=== PATIENT | male | born 1990 | race American Indian/Alaskan Native ===

== ENCOUNTER 2021-09-05 01:34 | Emergency (ER) | payer MEDICAID ==
--- NOTE | 2021-09-05 04:07 | Emergency Department Report ---
<KISHA CONDE - Last Filed: 09/05/21 06:44> ED General Adult HPI - General Chief complaint: Urogenital-Male Stated complaint: LT SIDE PAIN Time Seen by Provider: 09/05/21 02:43 Source: EMS Mode of arrival: Wheelchair Limitations: No Limitations - History of Present Illness Initial comments: 31-year-old male patient with history of bilateral lower extremity amputation presents to the emergency department with complaints of left hip pain starting today. No preceding fall, trauma, or injury. Patient uses a Lopez catheter at baseline. States his catheter is not working properly. His catheter was changed approximately 2 weeks ago. Usually, he keeps his catheter in place for 3 to 4 weeks at a time. Patient states the urine itself is not changed in appearance but the catheter seems to be leaking. Denies fever, abdominal pain, nausea, vomiting diarrhea, constipation. Denies all other complaints at this time. - Related Data Previous Rx's Medication Instructions Recorded Last Taken Type Naproxen 500 mg PO BID #20 tablet 09/05/21 Unknown Rx Sulfamethoxazole/Trimethoprim 1 each PO BID #20 tablet 09/05/21 Unknown Rx [Bactrim DS TAB] Allergies Allergy/AdvReac Type Severity Reaction Status Date / Time No Known Allergies Allergy Verified 09/05/21 01:45 ED Review of Systems Other: GENERAL: Negative for fever. CARDIOVASCULAR: Negative for chest pain. PULMONARY: Negative for shortness of breath. GASTROINTESTINAL: Negative for abdominal pain. MUSCULOSKELETAL: Positive for joint pain. NEUROLOGICAL: Negative for headache. INTEGUMENTARY: Negative for rash. ED Past Medical Hx - Past Medical History Hx Renal Disease: Yes Additional medical history: bilateral amputee - Medications Home Medications: Home Medications Medication Instructions Recorded Confirmed Last Taken Type Naproxen 500 mg PO BID #20 tablet 09/05/21 Unknown Rx Sulfamethoxazole/Trimethoprim 1 each PO BID #20 tablet 09/05/21 Unknown Rx [Bactrim DS TAB] ED Physical Exam - General Limitations: No Limitations - Other Other exam information: General: Awake, appropriately interactive, no acute distress. Neck: Supple. Full range of motion intact. Cardiovascular: Normal peripheral perfusion. Pulmonary: No respiratory distress. Patient is speaking normally without use of accessory muscles. Genitourinary: Lopez catheter in place however urine appears to be leaking around the catheter. No gross hematuria appreciated. Skin: No apparent rashes or lesions. Neurological: No facial asymmetry. Speech is clear. Follows commands. Patient is alert and oriented. Musculoskeletal: Left hip tenderness. Psych: Cooperative. Appropriate mood and affect. ED Medical Decision Making - Radiology Data [facility] [address] [place] [address] XRay Report Signed Patient: PAM GONZALEZ MR#: [id number] : 1990 Acct:[id number] Age/Sex: 31 / M ADM Date: 09/05/21 Loc: ED Attending Dr: Ordering Physician: ROSALBA DE SOUZA Date of Service: 09/05/21 Procedure(s): XR hip 2-3V LT Accession Number(s): [id number] cc: ROSALBA DE SOUZA Fluoro Time In Minutes: LEFT HIP 2 VIEW(S) INDICATION / CLINICAL INFORMATION: LEFT hip pain COMPARISON: None available. FINDINGS: BONES / JOINT(S): There is dislocation of the right femur, likely chronic given the degree of hip dysplasia. There is a dysmorphic appearance of the left femoral acetabular joint, likely sequela of long-standing hip dysplasia. No displaced fracture. SOFT TISSUES: Moderate stool retention throughout the colon. ADDITIONAL FINDINGS: None. Signer Name: Kailash Wild DO Signed: 09/05/2021 4:52 AM Workstation Name: [id number] Transcribed By: JAYESH Dictated By: KAILASH WILD DO Electronically Authenticated By: KAILASH WILD DO Signed Date/Time: 09/05/21451 DD/ 8 TD/TT: - Medical Decision Making Differential diagnosis including but not limited to: sprain, strain, fracture, contusion, dislocation, urinary tract infection, catheter obstruction On reevaluation, patient remains stable. X-rays show chronic changes without acute process. Lopez catheter changed without complications. Urinalysis pending. Patient's RN and radiology specialist both expressed concern regarding the patient's current hygiene status. He was found to have roaches crawling out of his pants by multiple staff members. Suspect he is not being appropriately cared for at his current residence. Patient given food and water. Case management consultation requested. Care of patient transferred to Kevin Harden NP at change of shift pending urinalysis results and case management consultation. ED Disposition Clinical Impression: Left hip pain Lopez catheter problem Qualifiers: Encounter type: initial encounter Qualified Code(s): T83.9XXA - Unspecified complication of genitourinary prosthetic device, implant and graft, initial encounter UTI (urinary tract infection) Qualifiers: Urinary tract infection type: acute cystitis Hematuria presence: with hematuria Qualified Code(s): N30.01 - Acute cystitis with hematuria Disposition: HOME / SELF CARE / HOMELESS Is pt being admited?: No Does the pt Need Aspirin: No Condition: Stable Instructions: Musculoskeletal Pain Additional Instructions: Take Tylenol every 4 hours as needed for pain. Take Naprosyn twice daily with food as needed for pain. Follow-up with primary care provider this week. Call today to schedule an appointment. See referral information below. Return to the emergency department immediately for new or worsening symptoms. Prescriptions: Sulfamethoxazole/Trimethoprim [Bactrim DS TAB] 1 each PO BID #20 tablet Naproxen 500 mg PO BID #20 tablet Referrals: NIYAH OG MD [Staff Physician] - 3-[address] [facility] [Provider Group] - 3-5 Days <KEVIN HARDEN - Last Filed: 09/05/21 11:07> ED Review of Systems ROS: Stated complaint: LT SIDE PAIN Other details as noted in HPI ED Course Vital Signs 09/05/21 09/05/21 09/05/21 01:46 05:25 05:27 Temperature 98.6 F 98.4 F Pulse Rate 79 73 Respiratory 18 16 16 Rate Blood Pressure 103/55 126/74 [Left] O2 Sat by Pulse 100 100 100 Oximetry 09/05/21 07:57 Temperature 98 F Pulse Rate 73 Respiratory 18 Rate Blood Pressure 120/68 [Left] O2 Sat by Pulse 99 Oximetry - Reevaluation(s) Reevaluation #1: 09/05/21 09:24 Patient was originally seen by ROSALBA Pulido and was signed out to me for a pending UA and case management. (PHILLIP CASEY) case management has been present and provided patient with references. UA does show that patient has a UTI, Rocephin has been ordered and patient be discharged with Bactrim. Patient is currently stable and vital signs are stable. Patient stated pain is under control. ED Medical Decision Making - Lab Data Lab Results 09/05/21 Range/Units Unknown Urine Color Yellow (Yellow) Urine Turbidity Cloudy (Clear) Urine pH 6.0 (5.0-7.0) Ur Specific [place] 1.017 (1.003-1.030) Urine Protein 100 mg/dl (Negative) mg/dL Urine Glucose (UA) Neg (Negative) mg/dL Urine Ketones Neg (Negative) mg/dL Urine Blood Lg (Negative) Urine Nitrite Neg (Negative) Urine Bilirubin Neg (Negative) Urine Urobilinogen < 2.0 (<2.0) mg/dL Ur Leukocyte Esterase Lg (Negative) Urine WBC (Auto) > 182.0 H (0.0-6.0) /HPF Urine RBC (Auto) 135.0 (0.0-6.0) /HPF U Epithel Cells (Auto) 1.0 (0-13.0) /HPF Urine Mucus Few /HPF Urine Yeast (Budding) 2+ /HPF - Medical Decision Making Patient was originally seen by ROSALBA Pulido and was signed out to me for a pending UA and case management. Case management has been present and provided patient with references. UA does show that patient has a UTI, Rocephin has been ordered and patient be discharged with Bactrim. Patient is currently stable and vital signs are stable. Patient stated pain is under control. Patient was instructed to follow-up with a primary care doctor in 3-5 days or if symptoms worsen and continue return to emergency room as soon as possible. At time of discharge, the patient does not seem toxic or ill in appearance. No acute signs of distress noted. Patient agrees to discharge treatment plan of care. No further questions noted by the patient. Critical care attestation.: If time is entered above; I have spent that time in minutes in the direct care of this critically ill patient, excluding procedure time.
--- NOTE | 2021-09-05 04:56 | XRay Report ---
LEFT HIP 2 VIEW(S) INDICATION / CLINICAL INFORMATION: LEFT hip pain COMPARISON: None available. FINDINGS: BONES / JOINT(S): There is dislocation of the right femur, likely chronic given the degree of hip dys plasia. There is a dysmorphic appearance of the left femoral acetabular joint, likely sequela of long -standing hip dysplasia. No displaced fracture. SOFT TISSUES: Moderate stool retention throughout the colon. ADDITIONAL FINDINGS: None. Signer Name: Kailash Delgado DO Signed: 09/05/2021 4:52 AM Workstation Name: [id number]
[2021-09-05 07:58] VITALS: BP 120/68
[2021-09-05 09:18] LABS: Bilirubin,Urine NEG (Negative); Blood,Urine LG (Negative); Color,Urine Yellow (Yellow); Mucus,Urine FEW /HPF; Urobilinogen,Urine < 2.0 mg/dL (<2.0)
[2021-09-05 09:22] LABS: WBC,Urine > 182.0 /HPF (0.0-6.0)
[2021-09-05] MEDS ORDERED: cefTRIAXone/NS 1 GM/50 ML 1 GM/50 ML BAG IV ONE (09:23)
[2021-09-05] MEDS ORDERED: LIDOCAINE-MPF (1%) 10 MG/1 ML VIAL 5 ML INFILTRATI ONE (09:39)
--- NOTE | 2021-09-05 10:36 | Event Note ---
Date: 09/05/21 The patient was evaluated in the emergency department for symptoms described in the history of present illness. He/she was evaluated in the context of the global COVID-19 pandemic, which necessitated consideration that the patient might be at risk for infection with the virus that causes COVID-19. Institutional protocols and algorithms that pertain to the evaluation of patients at risk for COVID-19 are in a state of rapid change based on information released by regulatory bodies including the CDC and federal and state organizations. These policies and algorithms were followed during the patient's care in the emergency department. Please note that these policies, procedures and recommendations changed on a rapid basis. Patient seen and examined. No acute complaints. Resting comfortably in stretcher. Laboratory studies, radiology studies, case management, and provided documentation reviewed and appreciated. The patient was deemed to not have an emergent medical condition on his initial ER evaluation. He is awake, alert, oriented, sober, and of sound mind. He exhibits decision-making capacity. 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 Initial care team has discharged with antibiotics. Case management notes are reviewed and appreciated, he will be provided with a bus pass, and he may be discharged. \He can follow-up with an outpatient primary care doctor for his chronic issues Vital Signs 09/05/21 09/05/21 09/05/21 01:46 05:25 05:27 Temperature 98.6 F 98.4 F Pulse Rate 79 73 Respiratory 18 16 16 Rate Blood Pressure 103/55 126/74 [Left] O2 Sat by Pulse 100 100 100 Oximetry 09/05/21 07:57 Temperature 98 F Pulse Rate 73 Respiratory 18 Rate Blood Pressure 120/68 [Left] O2 Sat by Pulse 99 Oximetry Lab Results 09/05/21 Range/Units Unknown Urine Color Yellow (Yellow) Urine Turbidity Cloudy (Clear) Urine pH 6.0 (5.0-7.0) Ur Specific [place] 1.017 (1.003-1.030) Urine Protein 100 mg/dl (Negative) mg/dL Urine Glucose (UA) Neg (Negative) mg/dL Urine Ketones Neg (Negative) mg/dL Urine Blood Lg (Negative) Urine Nitrite Neg (Negative) Urine Bilirubin Neg (Negative) Urine Urobilinogen < 2.0 (<2.0) mg/dL Ur Leukocyte Esterase Lg (Negative) Urine WBC (Auto) > 182.0 H (0.0-6.0) /HPF Urine RBC (Auto) 135.0 (0.0-6.0) /HPF U Epithel Cells (Auto) 1.0 (0-13.0) /HPF Urine Mucus Few /HPF Urine Yeast (Budding) 2+ /HPF
== END 2021-09-05 11:18 | disposition home or self-care (01) ==
LOC: ED 01:34
DX: M25.552 Pain in left hip (principal); T83.091A Other mechanical complication of indwelling urethral catheter, initial encounter; N39.0 Urinary tract infection, site not specified; Y84.6 Urinary catheterization as the cause of abnormal reaction of the patient, or of later complication, without mention of misadventure at the time of the procedure; Y73.8 Miscellaneous gastroenterology and urology devices associated with adverse incidents, not elsewhere classified
CPT/HCPCS: 51702; 73502; 81001; 96372; 99284; J0696

== ENCOUNTER 2021-11-27 01:43 | Emergency (ER) | payer MEDICAID ==
--- NOTE | 2021-11-27 02:15 | Emergency Department Report ---
ED General Adult HPI - General Chief complaint: Tube Replacement Stated complaint: LEFT HIP PAIN, CATHETER CHANGE Time Seen by Provider: 11/27/21 02:03 Source: patient, EMS Mode of arrival: Stretcher Limitations: Physical Limitation - History of Present Illness Initial comments: Patient presents by ambulance secondary to hip pain. He states that he had fallen out of his wheelchair about 1 month prior. He injured his left hip. He states that he had been seen at [facility] [place] and they did x-rays. He was told that his hip was normal. He states that his hip is not normal. He feels as though it is out of socket. He has had no new fall. He is complaining of constant and aching pain in the left hip area. He has pain with any kind of range of motion of the left leg. Patient also reports that his catheter needs to be changed. He believes that he is developing an infection. He has a chronic indwelling Lopez catheter that has been present for a prolonged period of time. This particular Lopez has been in for at least a month. He has no fevers or chills. No cough congestion. No vomit or diarrhea. He has no flank pain. Pain in the left hip is a constant and aching pain. - Related Data Previous Rx's Medication Instructions Recorded Last Taken Type Naproxen 500 mg PO BID #20 tablet 11/27/21 Unknown Rx Sulfamethoxazole/Trimethoprim 1 each PO BID #20 tablet 11/27/21 Unknown Rx [Bactrim DS TAB] Allergies Allergy/AdvReac Type Severity Reaction Status Date / Time No Known Allergies Allergy Verified 09/05/21 01:45 ED Review of Systems ROS: Stated complaint: LEFT HIP PAIN, CATHETER CHANGE Other details as noted in HPI Comment: All other systems reviewed and negative Constitutional: denies: fever Eyes: denies: vision change ENT: denies: epistaxis Respiratory: denies: cough Cardiovascular: denies: chest pain Endocrine: denies: unexplained weight loss Gastrointestinal: denies: abdominal pain Genitourinary: as per HPI Musculoskeletal: as per HPI Skin: denies: rash Neurological: denies: headache Hematological/Lymphatic: denies: easy bruising ED Past Medical Hx - Past Medical History Previous Medical History?: Yes Hx Renal Disease: Yes Additional medical history: bilateral amputee - Surgical History Past Surgical History?: Yes Additional Surgical History: Bilateral BKA - Family History Family history: no significant - Medications Home Medications: Home Medications Medication Instructions Recorded Confirmed Last Taken Type Naproxen 500 mg PO BID #20 tablet 11/27/21 Unknown Rx Sulfamethoxazole/Trimethoprim 1 each PO BID #20 tablet 11/27/21 Unknown Rx [Bactrim DS TAB] ED Physical Exam - General Limitations: Physical Limitation, Other (Pulse ox noted and normal) General appearance: alert, in no apparent distress - Head Head exam: Present: atraumatic, normocephalic - Eye Eye exam: Present: normal appearance, EOMI - ENT ENT exam: Present: normal orophraynx, normal external ear exam - Neck Neck exam: Present: normal inspection. Absent: meningismus - Respiratory Respiratory exam: Present: normal lung sounds bilaterally. Absent: respiratory distress - Cardiovascular Cardiovascular Exam: Present: regular rate, normal rhythm - GI/Abdominal GI/Abdominal exam: Present: soft. Absent: distended - Extremities Exam Extremities exam: Present: normal capillary refill, other (Patient reports pain with range of motion of the left hip, although he seems to have decent range of motion) - Back Exam Back exam: Absent: CVA tenderness (R), CVA tenderness (L) - Neurological Exam Neurological exam: Present: alert, oriented X3, CN II-XII intact - Psychiatric Psychiatric exam: Present: normal affect, normal mood - Skin Skin exam: Present: warm, dry ED Course Vital Signs 11/27/21 01:58 Temperature 98.4 F Pulse Rate 90 Respiratory 16 Rate Blood Pressure 132/78 [Left] O2 Sat by Pulse 98 Oximetry - Reevaluation(s) Reevaluation #1: 11/27/21 02:15 EMS have been met upon arrival. X-ray and Lopez change have been ordered. Old records noted. Reevaluation #2: 11/27/21 04:09 Radiographs were noted and the patient was discharged ED Medical Decision Making - Radiology Data Radiology results: report reviewed - Medical Decision Making Patient presented secondary to hip pain. He appears to have chronic changes involving the hips. These are certainly not acute. This did not happen 1 month ago. He seems to have dislocation of both hips that appears to be chronic in nature. He is here requesting pain medication. We will treat him symptomatically but will not provide opioid analgesics. He will be referred to his PCP and pain management physician for all ongoing pain management needs. There is no new trauma to suggest fracture. His Loepz catheter was changed. Critical Care Time: No Critical care attestation.: If time is entered above; I have spent that time in minutes in the direct care of this critically ill patient, excluding procedure time. ED Disposition Clinical Impression: Left hip pain, Urinary catheter (Lopez) change required Disposition: HOME / SELF CARE / HOMELESS Is pt being admited?: No Condition: Stable Instructions: Hip Pain, How to Use Cold Therapy, [id number] Additional Instructions: Drink plenty of water. Take your home medication. Follow-up with your primary care doctor or the referral physician for ongoing pain management needs. You can also follow-up with your orthopedic surgeon. Prescriptions: Sulfamethoxazole/Trimethoprim [Bactrim DS TAB] 1 each PO BID #20 tablet Naproxen 500 mg PO BID #20 tablet Referrals: NKECHI MCINTOSH MD [Primary Care Provider] - 3-5 Days NIYAH OG MD [Staff Physician] - 3-5 Days
--- NOTE | 2021-11-27 04:03 | XRay Report ---
Left hip-2 views INDICATION: pain/fall. COMPARISON: None available. 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 There are bilateral hip dislocati ons which appear to be chronic, with pseudoarthrosis in the left hip. No acute fracture identified. No acute soft tissue abnormality. Signer Name: Alec Gross MD Signed: 11/27/2021 3:58 AM Workstation Name: [id number]
[2021-11-27 05:34] VITALS: BP 128/78
== END 2021-11-27 05:35 | disposition home or self-care (01) ==
LOC: ED 01:43
DX: Z46.6 Encounter for fitting and adjustment of urinary device (principal); M25.552 Pain in left hip; Z79.899 Other long term (current) drug therapy
CPT/HCPCS: 51702; 99283

== ENCOUNTER 2022-02-09 01:26 | Emergency (ER) | payer MEDICAID ==
[2022-02-09] MEDS ORDERED: SODIUM CHLORIDE 0.9% 1000 ML 1,000 ML IV ONE (02:36)
--- NOTE | 2022-02-09 03:04 | XRay Report ---
CHEST 1 VIEW 02/09/2022 2:44 AM INDICATION / CLINICAL INFORMATION: Weakness. COMPARISON: None available. FINDINGS: SUPPORT DEVICES: None. HEART / MEDIASTINUM: The heart size and pulmonary vasculature are normal. LUNGS / PLEURA: No significant pulmonary or pleural abnormality. No pneumothorax. ADDITIONAL FINDINGS: No significant additional findings. IMPRESSION: No acute findings. Signer Name: Mckinley Hart MD Signed: 02/09/2022 3:00 AM Workstation Name: [id number]
[2022-02-09 03:11] LABS: Hematocrit 28.8 % (35.5-45.6); Mean Corpuscular HGB Conc 31 % (32-34); Mean Corpuscular Volume 78 fl (84-94); Platelet Count 513 K/mm3 (140-440); Red Blood Count 3.72 M/mm3 (3.65-5.03); Red Cell Distribution Width 19.9 % (13.2-15.2)
[2022-02-09 03:13] LABS: INR 0.98 (0.87-1.13)
[2022-02-09 03:20] LABS: Alanine Aminotransferase 8 units/L (7-56); Albumin 3.8 g/dL (3.9-5); Blood Urea Nitrogen 18 mg/dL (9-20); Calcium 8.9 mg/dL (8.4-10.2); Hemolysis Index 0
[2022-02-09 03:21] LABS: BUN/Creatinine Ratio 36
[2022-02-09 04:57] LABS: Bacteria,Urine 4+ /HPF (Negative); Mucus,Urine FEW /HPF
[2022-02-09 05:02] LABS: RBC,Urine > 182.0 /HPF (0.0-6.0); WBC,Urine > 182.0 /HPF (0.0-6.0)
[2022-02-09 05:04] LABS: Bilirubin,Urine Negative (Negative); Blood,Urine Trace (Negative); Color,Urine Amber (Yellow); Urobilinogen,Urine < 2.0 mg/dL (<2.0)
[2022-02-09 05:11] LABS: Basophils % (Manual) 0 % (0.0-1.8); Total Cells Counted 100
[2022-02-09 05:15] LABS: Hypochromasia 1+
[2022-02-09 05:16] LABS: Large Platelets Few; Target Cells 2+
[2022-02-09 05:17] LABS: Platelet Estimate Consistent w Auto
[2022-02-09] MEDS ORDERED: cefTRIAXone/NS 1 GM/50 ML 1 GM/50 ML BAG IV ONE (05:30)
--- NOTE | 2022-02-09 05:49 | Emergency Department Report ---
- General Chief complaint: Weakness Stated complaint: LF SIDE/HIP PAIN Time Seen by Provider: 02/09/22 02:30 Source: patient Mode of arrival: Stretcher Limitations: Physical Limitation - History of Present Illness Initial comments: bilateral bka, wheelchair dependant MD Complaint: generalized weakness -: week(s) Location: LLE Severity scale (0 -10): 0 Associated Symptoms: denies: denies other symptoms, confusion, shortness of breath, syncope - Related Data Previous Rx's Medication Instructions Recorded Last Taken Type Naproxen 500 mg PO BID #20 tablet 11/27/21 Unknown Rx Sulfamethoxazole/Trimethoprim 1 each PO BID #20 tablet 11/27/21 Unknown Rx [Bactrim DS TAB] Ciprofloxacin/Ciprofloxa HCl 500 mg PO BID #14 02/09/22 Unknown Rx [Ciprofloxacin ER 500 mg Tablet] Allergies Allergy/AdvReac Type Severity Reaction Status Date / Time No Known Allergies Allergy Verified 09/05/21 01:45 ED Review of Systems ROS: Stated complaint: LF SIDE/HIP PAIN Other details as noted in HPI Constitutional: denies: chills, fever Eyes: denies: eye pain, eye discharge, vision change ENT: denies: ear pain, throat pain Respiratory: denies: cough, shortness of breath, wheezing Cardiovascular: denies: chest pain, palpitations Endocrine: no symptoms reported Gastrointestinal: denies: abdominal pain, nausea, diarrhea Genitourinary: denies: urgency, dysuria Musculoskeletal: denies: back pain, joint swelling, arthralgia Skin: denies: rash, lesions Neurological: denies: headache, weakness, paresthesias Psychiatric: denies: anxiety, depression Hematological/Lymphatic: denies: easy bleeding, easy bruising ED Past Medical Hx - Past Medical History Hx Renal Disease: Yes Additional medical history: bilateral amputee - Surgical History Additional Surgical History: Bilateral BKA - Social History Smoking Status: Never Smoker Substance Use Type: None - Medications Home Medications: Home Medications Medication Instructions Recorded Confirmed Last Taken Type Naproxen 500 mg PO BID #20 tablet 11/27/21 Unknown Rx Sulfamethoxazole/Trimethoprim 1 each PO BID #20 tablet 11/27/21 Unknown Rx [Bactrim DS TAB] Ciprofloxacin/Ciprofloxa HCl 500 mg PO BID #14 02/09/22 Unknown Rx [Ciprofloxacin ER 500 mg Tablet] ED Physical Exam - General Limitations: Physical Limitation General appearance: alert, other (unkempt) - Head Head exam: Present: atraumatic, normocephalic - Eye Eye exam: Present: normal appearance - ENT ENT exam: Present: mucous membranes moist - Neck Neck exam: Present: normal inspection - Respiratory Respiratory exam: Present: normal lung sounds bilaterally. Absent: respiratory distress - Cardiovascular Cardiovascular Exam: Present: regular rate, normal rhythm. Absent: systolic murmur, diastolic murmur, rubs, gallop - GI/Abdominal GI/Abdominal exam: Present: soft, normal bowel sounds - Rectal Rectal exam: Present: deferred - Extremities Exam Extremities exam: Present: other (amputation ) - Back Exam Back exam: Present: normal inspection - Neurological Exam Neurological exam: Present: alert, oriented X3 - Psychiatric Psychiatric exam: Present: normal affect, normal mood - Skin Skin exam: Present: warm, dry, intact, normal color. Absent: rash ED Course Vital Signs 02/09/22 02/09/22 02:29 04:22 Temperature 98.3 F Pulse Rate 72 67 Respiratory 16 16 Rate Blood Pressure 103/67 102/63 [Left] O2 Sat by Pulse 98 98 Oximetry ED Medical Decision Making - Lab Data Result diagrams: 02/09/22 02:38 02/09/22 02:38 Critical care attestation.: If time is entered above; I have spent that time in minutes in the direct care of this critically ill patient, excluding procedure time. ED Disposition Clinical Impression: UTI (urinary tract infection) Disposition: 01 HOME / SELF CARE / HOMELESS Is pt being admited?: No Does the pt Need Aspirin: No Condition: Stable Instructions: Urinary Tract Infection, Adult, [id number] Prescriptions: Ciprofloxacin/Ciprofloxa HCl [Ciprofloxacin ER 500 mg Tablet] 500 mg PO BID #14 Referrals: PRIMARY CARE, [Primary Care Provider] - 3-5 Days
[2022-02-09 09:33] VITALS: BP 106/74
== END 2022-02-09 09:30 | disposition home or self-care (01) ==
LOC: ED 01:26
DX: N39.0 Urinary tract infection, site not specified (principal); R79.1 Abnormal coagulation profile; Z79.899 Other long term (current) drug therapy
CPT/HCPCS: 36415; 71045; 80053; 81001; 82140; 82550; 84484; 85007; 85025; 85610; 96361; 96365; 99284; J0696; J7030; Q0162

== ENCOUNTER 2022-02-23 02:18 | Emergency (ER) | payer MEDICAID ==
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
--- NOTE | 2022-02-23 03:11 | XRay Report ---
PELVIS 2 VIEW INDICATION / CLINICAL INFORMATION: old trauma new pain. COMPARISON: X-rays on 11/27/2019 FINDINGS: BONES / JOINT(S): No acute fracture or subluxation. There are unchanged chronic deformities and dyspl astic changes in the bilateral hips with bilateral chronic hip dislocations and pseudarthrosis in the left hip. SOFT TISSUES: No significant abnormality. ADDITIONAL FINDINGS: None. IMPRESSION: 1. No acute findings. Unchanged chronic deformities of both hip joints. Signer Name: Aram Malave MD Signed: 02/23/2022 3:06 AM Workstation Name: [id number]
[2022-02-23] MEDS ORDERED: oxyCODONE /ACETAMINOPHEN 5-325MG TAB PO ONE (03:23)
[2022-02-23 11:21] VITALS: BP 125/71
== END 2022-02-23 11:22 | disposition home or self-care (01) ==
LOC: ED 02:18
DX: G89.4 Chronic pain syndrome (principal); F17.200 Nicotine dependence, unspecified, uncomplicated
CPT/HCPCS: 72170; 99283

== ENCOUNTER 2022-06-11 00:10 | Emergency (ER) | payer MEDICAID ==
[2022-06-11] MEDS ORDERED: ASPIRIN 325 MG TAB PO ONE (00:42)
[2022-06-11] MEDS ORDERED: SODIUM CHLORIDE 0.9% 1000 ML 1,000 ML ONE (01:14)
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
[2022-06-11] MEDS ORDERED: SODIUM CHLORIDE 0.9% 1000 ML 1,000 ML IV ONE (01:26)
[2022-06-11 01:43] LABS: Hematocrit 30.5 % (35.5-45.6); Hemoglobin 9.4 gm/dl (11.8-15.2); Mean Corpuscular HGB Conc 31 % (32-34); Mean Corpuscular Volume 79 fl (84-94); Platelet Count 507 K/mm3 (140-440); Red Blood Count 3.85 M/mm3 (3.65-5.03)
[2022-06-11 01:50] LABS: Red Cell Distribution Width 21.3 % (13.2-15.2)
--- NOTE | 2022-06-11 01:50 | XRay Report ---
CHEST 2 VIEWS INDICATION / CLINICAL INFORMATION: chestpain. COMPARISON: Chest x-ray 02/09/2022 FINDINGS: SUPPORT DEVICES: None. HEART / MEDIASTINUM: Heart size and mediastinal contour appear within normal limits. LUNGS / PLEURA: No significant pulmonary or pleural abnormality. No pneumothorax. BONES: No significant osseous abnormality. ADDITIONAL FINDINGS: No significant additional findings. IMPRESSION: 1. No active cardiopulmonary disease. Signer Name: Jl Larios II, MD Signed: 06/11/2022 1:45 AM Workstation Name: [id number]
[2022-06-11 02:01] LABS: Alanine Aminotransferase 7 units/L (7-56); Albumin 3.8 g/dL (3.9-5); Blood Urea Nitrogen 17 mg/dL (9-20); Calcium 9.2 mg/dL (8.4-10.2); Hemolysis Index 3
[2022-06-11 02:06] LABS: BUN/Creatinine Ratio 24
[2022-06-11 04:13] LABS: Anisocytosis 1+; Basophils % (Manual) 0 % (0.0-1.8); Total Cells Counted 100
[2022-06-11 04:14] LABS: Hypochromasia 1+; Platelet Estimate Consistent w Auto; Target Cells 1+
[2022-06-11 04:45] VITALS: BP 98/52
[2022-06-11 05:00] LABS: Amorphous Crystals,Urine Few; Bacteria,Urine 1+ /HPF (Negative); Mucus,Urine 1+ /HPF
[2022-06-11 05:08] LABS: Bilirubin,Urine Negative (Negative); Color,Urine Yellow (Yellow)
[2022-06-11 05:09] LABS: Blood,Urine Trace (Negative); Protein,Urine >500 mg/dL (Negative)
--- NOTE | 2022-06-12 10:01 | Electrocardiograph Report ---
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
== END 2022-06-11 12:36 | disposition home or self-care (01) ==
LOC: ED 00:10
DX: R07.89 Other chest pain (principal); N28.9 Disorder of kidney and ureter, unspecified; Z89.9 Acquired absence of limb, unspecified; Z98.890 Other specified postprocedural states; F17.290 Nicotine dependence, other tobacco product, uncomplicated; Z88.8 Allergy status to other drugs, medicaments and biological substances
CPT/HCPCS: 36415; 71045; 80053; 81001; 84484; 85007; 85025; 93005; 96360; 99284; J7030

== ENCOUNTER 2022-06-14 21:19 | Emergency (ER) | payer MEDICAID ==
--- NOTE | 2022-06-15 09:07 | Emergency Department Report ---
ED General Adult HPI - General Chief complaint: Urogenital-Male Stated complaint: CATH ISSUE PUI?: No Time Seen by Provider: 06/15/22 08:05 Source: patient Mode of arrival: Ambulatory Limitations: No Limitations - History of Present Illness Initial comments: forrest catheter is leaking -: Gradual Location: genitals Associated Symptoms: denies: denies other symptoms, confusion, chest pain, cough - Related Data Previous Rx's Medication Instructions Recorded Last Taken Type Naproxen 500 mg PO BID #20 tablet 11/27/21 Unknown Rx Sulfamethoxazole/Trimethoprim 1 each PO BID #20 tablet 11/27/21 Unknown Rx [Bactrim DS TAB] Ciprofloxacin/Ciprofloxa HCl 500 mg PO BID #14 02/09/22 Unknown Rx [Ciprofloxacin ER 500 mg Tablet] Oxycodone HCl/Acetaminophen 1 each PO Q6HR PRN 3 Days #10 02/23/22 Unknown Rx [Percocet 10/325 mg] Allergies Allergy/AdvReac Type Severity Reaction Status Date / Time ketorolac [From Toradol] Allergy Mild Itching Verified 02/23/22 02:39 ED Review of Systems ROS: Stated complaint: CATH ISSUE Other details as noted in HPI Constitutional: denies: chills, fever Eyes: denies: eye pain, eye discharge, vision change ENT: denies: ear pain, throat pain Respiratory: denies: cough, shortness of breath, wheezing Cardiovascular: denies: chest pain, palpitations Endocrine: no symptoms reported Gastrointestinal: denies: abdominal pain, nausea, diarrhea Genitourinary: denies: urgency, dysuria Musculoskeletal: denies: back pain, joint swelling, arthralgia Skin: denies: rash, lesions Neurological: denies: headache, weakness, paresthesias Psychiatric: denies: anxiety, depression Hematological/Lymphatic: denies: easy bleeding, easy bruising ED Past Medical Hx - Past Medical History Hx Renal Disease: Yes Additional medical history: bilateral amputee. Sacral wounds. - Surgical History Additional Surgical History: Bilateral BKA - Social History Smoking Status: Former Smoker - Medications Home Medications: Home Medications Medication Instructions Recorded Confirmed Last Taken Type Naproxen 500 mg PO BID #20 tablet 11/27/21 Unknown Rx Sulfamethoxazole/Trimethoprim 1 each PO BID #20 tablet 11/27/21 Unknown Rx [Bactrim DS TAB] Ciprofloxacin/Ciprofloxa HCl 500 mg PO BID #14 02/09/22 Unknown Rx [Ciprofloxacin ER 500 mg Tablet] Oxycodone HCl/Acetaminophen 1 each PO Q6HR PRN 3 Days #10 02/23/22 Unknown Rx [Percocet 10/325 mg] ED Physical Exam - General Limitations: No Limitations General appearance: alert, in no apparent distress - Head Head exam: Present: atraumatic, normocephalic - Eye Eye exam: Present: normal appearance - ENT ENT exam: Present: mucous membranes moist - Neck Neck exam: Present: normal inspection - Respiratory Respiratory exam: Present: normal lung sounds bilaterally. Absent: respiratory distress - Cardiovascular Cardiovascular Exam: Present: regular rate, normal rhythm. Absent: systolic murmur, diastolic murmur, rubs, gallop - GI/Abdominal GI/Abdominal exam: Present: soft, normal bowel sounds - Rectal Rectal exam: Present: deferred - exam: Present: other (indwelling forrest ) - Extremities Exam Extremities exam: Present: other (amputation ) - Back Exam Back exam: Present: normal inspection - Neurological Exam Neurological exam: Present: alert, oriented X3 - Psychiatric Psychiatric exam: Present: normal affect, normal mood - Skin Skin exam: Present: warm, dry, intact, normal color. Absent: rash ED Course Vital Signs 06/14/22 21:26 Temperature 98.2 F Pulse Rate 100 H Respiratory 16 Rate Blood Pressure 120/78 [Right] O2 Sat by Pulse 99 Oximetry ED Medical Decision Making - Medical Decision Making forrest changed , wound dressing Critical care attestation.: If time is entered above; I have spent that time in minutes in the direct care of this critically ill patient, excluding procedure time. ED Disposition Clinical Impression: Forrest catheter problem, Encounter for wound care Disposition: HOME / SELF CARE / HOMELESS Is pt being admited?: No Does the pt Need Aspirin: No Condition: Stable Referrals: NIYAH OG MD [Primary Care Provider] - 3-5 Days
[2022-06-15 09:21] VITALS: BP 122/80
== END 2022-06-15 10:05 | disposition home or self-care (01) ==
LOC: ED 21:19
DX: Z46.6 Encounter for fitting and adjustment of urinary device (principal); Z48.00 Encounter for change or removal of nonsurgical wound dressing
CPT/HCPCS: 51702; 99283